=== PATIENT | male | born 1945 | race Caucasian/White ===

== ENCOUNTER 2020-02-23 08:33 | Outpatient (CLI) | payer OTHER ==
[2020-02-23] MEDS ORDERED: ENAL20TA PO (09:23)
[2020-02-23] MEDS ORDERED: ALLO300T PO (09:23)
[2020-02-23] MEDS ORDERED: MULT-717 PO (09:23)
[2020-02-23 09:40] LABS: BASOPHILS # (AUTO) 0.04 x10^3/uL (0-0.1); BASOPHILS % (AUTO) 1 % (0-1); EOSINOPHILS # (AUTO) 0.24 x10^3/uL (0-0.4); EOSINOPHILS % (AUTO) 4 % (1-7); LYMPHOCYTES # (AUTO) 1.67 x10^3/uL (1-3.4); LYMPHOCYTES % (AUTO) 28 % (22-44); MD NO; MEAN CORPUSCULAR HEMOGLOBIN 32.8 pg (27.5-34.5); MEAN CORPUSCULAR HGB CONC 34.1 g/dL (33.2-36.2); MEAN CORPUSCULAR VOLUME 96.2 fL (81-97); MEAN PLATELET VOLUME 7.4 fL (7.4-10.4); MONOCYTES # (AUTO) 0.68 x10^3/uL (0.2-0.8); MONOCYTES % (AUTO) 11 % (2-9); NEUTROPHILS % (AUTO) 56 % (42-75); PLATELET COUNT 222 x10^3/uL (130-400); RED BLOOD COUNT 4.69 x10^6/uL (4.38-5.82); RED CELL DISTRIBUTION WIDTH 14.4 % (9.4-14.8)
[2020-02-23 09:49] LABS: ALANINE AMINOTRANSFERASE 44 U/L (12-78); ANION GAP 7 mmol/L (5-15); CALCIUM 9.3 mg/dL (8.5-10.1); CHLORIDE 110 mmol/L (98-107); CREATININE 1.37 mg/dL (0.7-1.3)
[2020-02-23 09:51] LABS: ALKALINE PHOSPHATASE 79 U/L (45-117); BILIRUBIN,TOTAL 0.8 mg/dL (0.2-1.0); TOTAL PROTEIN 7.5 g/dL (6.4-8.2)
== END 2020-02-23 23:59 | disposition home or self-care (01) ==
LOC: STAR 08:33
PROVIDERS: ATTEND Orthopaedic Surgery
DX: Z01.818 Encounter for other preprocedural examination (principal); Z11.59 Encounter for screening for other viral diseases; M25.561 Pain in right knee; I44.4 Left anterior fascicular block; R00.1 Bradycardia, unspecified
CPT/HCPCS: 36415; 80053; 85025; 87081; 87147; 93005; U0001

== ENCOUNTER 2020-02-28 09:36 | Observation (INO) | payer OTHER ==
[~2020-02-28] VITALS: Ht 177.8 cm; Wt 105.2 kg
[~2020-02-28 09:36] MED LIST: ALLO300T PO; ENAL20TA PO; MULT-717 PO
[2020-02-28 09:57] VITALS: BP 149/89
[2020-02-28] MEDS ORDERED: LACTATED RINGERS 1,000 ML IV SCH (10:01)
[2020-02-28] MEDS ORDERED: CHLORHEXIDINE 15 ML UDC ONE (10:07)
[2020-02-28] MEDS ORDERED: CHLORHEXIDINE 15 ML UDC MM ONE (10:30)
[2020-02-28] MEDS ORDERED: TRANEXAMIC ACID 100 MG/ML, 10ML ONE (10:43)
[2020-02-28] MEDS ORDERED: SODIUM CHLORIDE 0.9% 50 ML ONE (10:44)
[2020-02-28] MEDS ORDERED: ROPIvacaine/PF 0.2%, 20 ML ONE (10:44)
[2020-02-28] MEDS ORDERED: VANCOMYCIN 1,000 MG ONE (10:44)
[2020-02-28] MEDS ORDERED: EPINEPHRINE 1 MG/ML, 1ML ONE (10:45)
[2020-02-28] MEDS ORDERED: PROPOFOL 10 MG/ML, 20ML ONE ×2 (10:54)
[2020-02-28] MEDS ORDERED: FENTANYL PF 100 MCG/2ML ONE ×3 (10:54→12:19)
[2020-02-28] MEDS ORDERED: LIDOCAINE-MPF 2% ,5ML ONE (10:54)
[2020-02-28] MEDS ORDERED: CEFAZOLIN 1,000 MG ONE ×2 (10:54)
[2020-02-28] MEDS ORDERED: KETOROLAC 30 MG/1 ML ONE (11:04)
[2020-02-28] MEDS ORDERED: ACETAMINOPHEN 500 MG TABLET PO ONE (11:30)
[2020-02-28] MEDS ORDERED: DEXAMETHASONE 4 MG/ML, 1ML ONE ×3 (11:39)
[2020-02-28] MEDS ORDERED: PROMETHAZINE 25 MG/ML, 1ML IVPush PRN (12:00)
[2020-02-28] MEDS ORDERED: FENTANYL PF 100 MCG/2ML IV PRN (12:00)
[2020-02-28] MEDS ORDERED: OXYcodone 5 MG/5 ML ORAL.SOL UDC PO PRN (12:00)
[2020-02-28] MEDS ORDERED: ONDANSETRON 2MG/ML, 2ML IVPush PRN (12:00)
[2020-02-28] MEDS ORDERED: ONDANSETRON 2MG/ML, 2ML ONE (12:57)
[2020-02-28] MEDS: LACTATED RINGERS 1,000 ML IV SCH (13:08)
[2020-02-28] MEDS ORDERED: SENNA/DOCUSATE TABLET PO PRN (13:30)
[2020-02-28] MEDS ORDERED: HYDROcodone/APAP 5/325 TABLET PO PRN (13:30)
[2020-02-28] MEDS ORDERED: HYDROcodone/APAP 7.5-325MG/15ML UDC PO PRN (13:30)
[2020-02-28] MEDS: ACETAMINOPHEN 500 MG TABLET PO SCH ×2 (13:30→19:31)
[2020-02-28] MEDS ORDERED: HYDROcodone/APAP 10/325 MG TABLET PO PRN (13:30)
[2020-02-28] MEDS ORDERED: DIPHENHYDRAMINE 25 MG CAPSULE PO PRN (13:30)
[2020-02-28] MEDS ORDERED: TRANEXAMIC ACID 1,000 MG in SODIUM CHLORIDE 0.9% 100 ML IVPB ONE (14:00)
[2020-02-28] MEDS: ASPIRIN 81 MG TABLET EC PO SCH (17:41)
[2020-02-28] MEDS: CEFAZOLIN PMX 1GM/50ML 50 ML IVPB SCH (18:57)
[2020-02-28 19:37] VITALS: BP 156/84
[2020-02-28] MEDS: PREGABALIN 75 MG CAPSULE PO SCH ×2 (20:12→20:15)
[2020-02-28 23:48] VITALS: BP 148/67
[2020-02-29] MEDS: ACETAMINOPHEN 500 MG TABLET PO SCH ×2 (01:35→07:54)
[2020-02-29] MEDS: LACTATED RINGERS 1,000 ML IV SCH (02:28)
[2020-02-29] MEDS: CEFAZOLIN PMX 1GM/50ML 50 ML IVPB SCH (03:14)
[2020-02-29 03:45] VITALS: BP 134/68
[2020-02-29] MEDS: ASPIRIN 81 MG TABLET EC PO SCH (05:09)
[2020-02-29 07:03] VITALS: BP 143/82
[2020-02-29] MEDS: PREGABALIN 75 MG CAPSULE PO SCH (07:55)
[2020-02-29] MEDS ORDERED: LUT PO SCH (09:00)
[2020-02-29] MEDS ORDERED: MULTIVITS MIN PO SCH (09:00)
[2020-02-29] MEDS ORDERED: [UNRECOGNIZED DRUG - OTHER] PO SCH (09:00)
[2020-02-29] MEDS ORDERED: LYCOPENE T PO SCH (09:00)
[2020-02-29] MEDS ORDERED: ENALAPRIL 20MG TABLET PO SCH (09:00)
[2020-02-29] MEDS ORDERED: ALLOPURINOL 300 MG TABLET PO SCH (09:00)
== END 2020-02-29 11:06 | disposition home or self-care (01) ==
LOC: OUT 09:36 → ORIP 13:08 → 4NE 17:32 → DCLOUNGE 02-29 10:55
PROVIDERS: ADMIT Orthopaedic Surgery; ATTEND Orthopaedic Surgery
DX: M17.11 Unilateral primary osteoarthritis, right knee (principal); M21.161 Varus deformity, not elsewhere classified, right knee; M10.9 Gout, unspecified; K21.9 Gastro-esophageal reflux disease without esophagitis; I10 Essential (primary) hypertension; Z79.899 Other long term (current) drug therapy
CPT/HCPCS: 27447; 36415; 73560; 85018; 96365; 96366; 97110; 97161; C1713; C1776; G0378; J0171; J0690; J1100; J2405; J2704; J2795; J3010; J3490; J7120; J3370